=== PATIENT | male | born 1990 | race Two or more races ===

== ENCOUNTER 2024-06-08 10:06 | Emergency (ER) | payer SELFPAY ==
[~2024-06-08] VITALS: Ht 172.7 cm; Wt 94.5 kg
--- NOTE | 2024-06-08 11:06 | ED.PDOC ---
Back pain HPI HPI Comments A 34 YEAR OLD MALE PRESENTS TO THE ED WITH COMPLAINT OF UPPER BACK PAIN. PATIENT STATES HE WAS SITTING IN HIS CAR YESTERDAY AND WHILE HE WAS STRETCHING HIS BACK HE TWISTED THE WRONG WAY AND FELT A POP AND THEN PAIN IN HIS UPPER BACK SHORTLY AFTER. PATIENT REPORTS HE IS NOW EXPERIENCING UPPER BACK PAIN THAT IS WORSE WITH MOVEMENT. PATIENT DENIES SADDLE ANESTHESIA, URINARY INCONTINENCE, BOWEL INCONTINENCE, DYSURIA, HEMATURIA, FEVER, CHILLS, SHORTNESS OF BREATH, CHEST PAIN, ABDOMINAL PAIN, NAUSEA, VOMITING, HEADACHE, OR OTHER COMPLAINTS. NO OTHER SYMPTOMS OR MODIFYING FACTORS AT THIS TIME. PATIENT IS ALERT, ORIENTED X 4, AND HAS STEADY GAIT. Chief Complaint: Back Pain Time Seen by MD: 10:23 Reviewed Notes: Nurses Notes, Medications, Allergies Allergies: Coded Allergies: Ibuprofen (Verified Allergy, Unknown, 06/08/24) Information Source: Patient Mode of Arrival: Wheelchair Timing: Days Duration: Since onset, Days Location of Back pain: (B) Upper back Severity: Moderate Prehospital treatment: None Quality: Aching, Cramping Onset: Spontaneous Circumstance: Other (STRETCHING) History of: None Modifying Factors: Movement Associated signs and symptoms: None Past Medical History PAST MEDICAL HISTORY: Denies Surgical History: Denies all surgeries Family History Family History: Reviewed,noncontributory to illness Social History Smoker: Non-Smoker Alcohol: Denies ETOH Use Drugs: Denies Drug Use Lives In: Home Constitutional: denies: chills, diaphoresis, fatigue, fever, malaise, sweats, weakness, others EENTM: denies: blurred vision, double vision, ear bleeding, ear discharge, ear drainage, ear pain, ear ringing, eye pain, eye redness, hearing loss, mouth pain, mouth swelling, nasal discharge, nose bleeding, nose congestion, nose pain, photophobia, tearing, throat pain, throat swelling, voice changes, others Respiratory: denies: cough, hemoptysis, orthopnea, SOB at rest, shortness of breath, SOB with excertion, stridor, wheezing, others Cardiovascular: denies: chest pain, dizzy spells, diaphoresis, Dyspnea on exertion, edema, irregular heart beat, left arm pain, lightheadedness, palpitations, PND, syncope, others Gastrointestinal: denies: abdomen distended, abdominal pain, blood streaked bowels, constipated, diarrhea, dysphagia, difficulty swallowing, hematemesis, melena, nausea, poor appetite, poor fluid intake, rectal bleeding, rectal pain, vomiting, others Neurological: denies: dizziness, fainting, headache, left sided numbness, left sided weakness, numbness, paresthesia, pre-existing deficit, right sided numbness, right sided weakness, seizure, speech problems, tingling, tremors, weakness, others Musculoskeletal: reports: back pain (UPPER BACK PAIN), muscle pain; denies: gout, joint pain, joint swelling, muscle stiffness, neck pain, others Integumetry: denies: bruises, change in color, change in hair/nails, dryness, laceration, lesions, lumps, rash, wounds, others Allergic/Immunocompromised: denies: Difficulty Healing, Frequent Infections, Hives, Itching, others Hematologic/Lymphatic: denies: anemia, blood clots, easy bleeding, easy bruising, swollen glands, others Endocrine: denies: excessive hunger, excessive sweating, excessive thirst, excessive urination, flushing, intolerance to cold, intolerance to heat, unexplained weight gain, unexplained weight loss, others Psychiatric: denies: anxiety, bipolar disorder, depression, hopeless, panic disorder, schizophrenia, sleepless, suicidal, others All Other Systems: Reviewed and Negative Physical Exam General Appearance: No Apparent Distress, Normal HEENT: Normal ENT Inspection, PERRL/EOMI, Pharynx Normal, TMs Normal Neck: Full Range of Motion, Non-Tender, Normal, Normal Inspection Respiratory: Chest Non-Tender, Lungs Clear, No Accessory Muscle Use, No Respiratory Distress, Normal Breath Sounds Cardiovascular: No Edema, No JVD, No Murmur, No Gallop, Normal Peripheral Pulses, Regular Rate/Rhythm Breast Exam: Deferred Gastrointestinal: No Organomegaly, Non Tender, No Pulsatile Mass, Normal Bowel Sounds, Soft Genitalia: Deferred Pelvic: Deferred Rectal: Deferred Extremities: No calf tenderness, Normal capillary refill, Normal inspection, Normal range of motion, Non-tender, No pedal edema Musculoskeletal : Location: Bilateral Extremity Location: Back Apperance: Tenderness: Moderate (MUSCLE SPASM ON UPPER BACK, NO BONY TENDERNESS AND SWELLING, NO DEFORMITY. 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 Was a procedure done?: No Back Pain Differential Dx Differential Diagnosis: Musculoskeletal Pain Other Differential Diagnosis LOW BACK STRAIN, MUSCLE SPASM X-Ray, Labs, Meds, VS Vital Signs Date Time Temp Pulse Resp B/P (MAP) Pulse Ox O2 Delivery O2 Flow Rate FiO2 06/08/24 11:19 72 16 100 Room Air 06/08/24 11:19 99.6 72 18 128/86 (100) 100 99.6 06/08/24 11:15 99.6 72 16 128/86 (100) 100 EXAM: XR Thoracic Spine, 2 Views CLINICAL INDICATION: TWISTED UPPER BACK TECHNIQUE: Frontal and lateral views of the thoracic spine. COMPARISON: None FINDINGS: VERTEBRAE: Unremarkable. No acute fracture. Normal alignment. DISC SPACES: No acute findings. No significant narrowing. SOFT TISSUES: Unremarkable. OTHER FINDINGS: . . . IMPRESSION: No acute fracture. HS:Y ATED BY: AMELIA GRAFF MD DICTATED DATE/TIME: 06/08/24 1120 SIGNED BY: AMELIA GRAFF MD SIGNED DATE/TIME: 06/08/24 112 CC: X-Ray, Labs, Meds, VS Comment TREATMENT: TORADOL 60 MG IM Images Reviewed?: Images reviewed and evaluated by me Time of 1ST Reevaluation: 11:50 Reevaluation 1ST: Improved Patient Education/Counseling: Diagnosis, Treatment, Need For Follow Up Family Education/Counseling: Diagnosis, Treatment, Need For Follow Up Medical Screening: No EMC Exist At This Time Departure 1 Departure Time of Disposition: 11:50 Impression: Primary Impression: Muscle strain of upper back Disposition: 01 HOME / SELF CARE / HOMELESS Condition: Stable Additional Instructions: FOLLOW-UP WITH PCP IN 1 TO 2 DAYS. TAKE MEDICATIONS PRESCRIBED. RETURN TO ED FOR ANY NEW OR WORSENING SYMPTOMS. Discharged With: Self Critical Care Note Critical Care Time?: No Stability Stability form required: No I personally scribed for MARI CLINE ([email or web address]) on 06/08/24 at 11:06. Electronically submitted by Vicente Pérez ([email or web address]). I personally scribed for MARI CLINE ([email or web address]) on 06/08/24 at 11:25. Electronically submitted by Vicente Pérez ([email or web address]). MARI CLINE Jun 08, 2024 11:06
[2024-06-08 11:19] VITALS: BP 128/86; PULSE 72; RESP 16; TEMP 99.6; O2SAT 100
--- NOTE | 2024-06-08 11:23 | DVH ---
EXAM: XR Thoracic Spine, 2 Views CLINICAL INDICATION: TWISTED UPPER BACK TECHNIQUE: Frontal and lateral views of the thoracic spine. COMPARISON: None FINDINGS: VERTEBRAE: Unremarkable. No acute fracture. Normal alignment. DISC SPACES: No acute findings. No significant narrowing. SOFT TISSUES: Unremarkable. OTHER FINDINGS: . . . IMPRESSION: No acute fracture. HS:Y
[2024-06-08] MEDS ORDERED: KETOROLAC TROMETH 60MG/2ML VIAL ONE (11:38)
[2024-06-08] MEDS: KETOROLAC TROMETH 60MG/2ML VIAL IM ONE (11:40)
== END 2024-06-08 11:47 | disposition home or self-care (01) ==
LOC: ER 10:06
DX: S29.012A Strain of muscle and tendon of back wall of thorax, initial encounter (principal); Z88.6 Allergy status to analgesic agent; X50.1XXA Overexertion from prolonged static or awkward postures, initial encounter; Y93.89 Activity, other specified; Y92.89 Other specified places as the place of occurrence of the external cause; Y99.8 Other external cause status
CPT/HCPCS: 72070; 96372; 99283; J1885